=== PATIENT | female | born 1990 | race Caucasian/White ===

== ENCOUNTER → 2023-02-20 | Outpatient (CLI) | payer BC ==
[2023-02-20 17:36] LABS: BASOPHILS ABSOLUTE AUTO 0.02 K/mm3 (0.00-0.23); BASOPHILS PERCENT AUTO 0 % (0-2); EOSINOPHILS ABSOLUTE AUTO 0.07 K/mm3 (0.00-0.68); EOSINOPHILS PERCENT AUTO 1 % (0-6); Hematocrit 43.1 % (33.0-51.0); IMMATURE GRAN ABSOLUTE AUTO 0.01 K/mm3 (0.00-0.10); IMMATURE GRAN PERCENT AUTO 0 % (0-1); LYMPHOCYTES ABSOLUTE AUTO 1.98 K/mm3 (0.84-5.20); LYMPHOCYTES PERCENT AUTO 33 % (21-46); MONOCYTES ABSOLUTE AUTO 0.41 K/mm3 (0.16-1.47); MONOCYTES PERCENT AUTO 7 % (4-13); Mean Corpuscular HGB 27.7 pg (26.0-34.0); Mean Corpuscular HGB Conc 32.5 g/dL (31.5-36.5); Mean Corpuscular Volume 85 fL (80-100); Mean Platelet Volume 9.6 fL (9.1-12.4); NEUTROPHILS ABSOLUTE AUTO 3.57 K/mm3 (1.96-9.15); NEUTROPHILS PERCENT AUTO 59 % (41-73); Platelet Count 230 K/mm3 (150-400); RDW Coefficient Variation 14.2 % (11.7-14.2); RDW Standard Deviation 43.8 fL (35.1-46.3); Red Blood Cell Count 5.05 M/mm3 (3.80-5.20); White Blood Cell Count 6.06 K/mm3 (4.00-11.30)
[2023-02-20 17:58] LABS: Albumin, Blood 3.9 g/dL (3.4-5.0); Albumin/Globulin Ratio 1.1 (0.8-1.8); Bilirubin, Total 0.4 mg/dL (0.1-1.0); Bun/Creatinine Ratio 11.5 (12.0-20.0); Creatinine, Blood 0.79 mg/dL (0.40-1.00); Globulin, Blood 3.6 g/dL (2.2-4.0); Potassium, Blood 4.1 mmol/L (3.5-5.5); Thyroid Stimulating Hormone 1.87 uIU/mL (0.360-4.800); Total Protein, Blood 7.5 g/dL (6.4-8.2)
== END | disposition home or self-care (01) ==
LOC: LAB 15:58 → LAB SHORT 15:58
PROVIDERS: Physician Assistant
DX: R07.9 Chest pain, unspecified (principal)
CPT/HCPCS: 80053; 84443; 85025

== ENCOUNTER 2024-05-15 07:18 | Day surgery (SDC) | payer BC ==
[~2024-05-15] VITALS: Ht 162.6 cm; Wt 108.3 kg
[2024-05-15] MEDS ORDERED: CeFAZolin Sodium 2,000 MG VIAL ONE (07:29)
[2024-05-15] MEDS ORDERED: NS 50 ML IV ONE (07:30)
[2024-05-15] MEDS ORDERED: METF500 PO (07:57)
[2024-05-15] MEDS ORDERED: VYVANSE10 MG PO (07:58)
[2024-05-15] MEDS ORDERED: DESV50 PO (07:58)
[2024-05-15] MEDS ORDERED: Midazolam HCl 1MG / ML 2ML Vial ONE (08:00)
[2024-05-15] MEDS ORDERED: FentaNYL Citrate 50 MCG/ML 2 ML Injection ONE (08:00)
[2024-05-15] MEDS ORDERED: Lactated Ringer's 1,000 ML IV ONE ×2 (08:07→09:09)
--- NOTE | 2024-05-15 08:16 | NUR ---
05/15/24 0816 Demi lA 0.15ML OF EPI (1MG/ML) ADDED TO BUPIVACAINE 0.5% (150MG/30ML) TO MAKE BUPIVACAINE 0.5% WITH EPI 1:200,000 ON FIELD.
[2024-05-15] MEDS ORDERED: Dexamethasone Sod Phos 10 MG/ML 1ML VIAL ONE (08:18)
[2024-05-15] MEDS ORDERED: Bupivacaine 0.5% HCl 5 MG/ML 30MLVIAL INJ ONE ×2 (08:26)
[2024-05-15] MEDS ORDERED: EPINEPhrine HCl 1 MG/ML 1ML Amp XX ONE ×2 (08:27)
[2024-05-15] MEDS ORDERED: propofoL 60 ML IV ONE (08:47)
--- NOTE | 2024-05-15 08:48 | NUR ---
05/15/24 0848 Josy LeónED AND FENTANYL PULLED BY DR ALEX. OREDERED TO GIVE 1 CC OF FENTANYL AND 1 CC OF VERSED. 1 ML OF EACH GIVEN IN IV. NEITHER MEDICATION SHOWING UP IN EMAR. DR ALEX TOOK REMAINING 1 ML OF FENTANYL AND 1 ML VERSED BACK TO THE O.R.
[2024-05-15 10:44] VITALS: BP 122/84
== END 2024-05-15 10:42 | disposition home or self-care (01) ==
LOC: ORSCSDS 07:18
PROVIDERS: Podiatrist Foot & Ankle Surgery
PROC: 0QSJ04Z Reposition Right Fibula with Internal Fixation Device, Open Approach (ICD-10-PCS; principal; 2024-05-15 08:30)
DX: S82.61XA Displaced fracture of lateral malleolus of right fibula, initial encounter for closed fracture (principal); Y93.59 Activity, other involving other sports and athletics played individually; E11.9 Type 2 diabetes mellitus without complications; Z79.84 Long term (current) use of oral hypoglycemic drugs; Z79.899 Other long term (current) drug therapy; F90.9 Attention-deficit hyperactivity disorder, unspecified type; F41.9 Anxiety disorder, unspecified; F32.A Depression, unspecified; Z87.891 Personal history of nicotine dependence; E66.9 Obesity, unspecified; Z68.41 Body mass index [BMI] 40.0-44.9, adult
CPT/HCPCS: 82947; C1713; C1889; J0171; J0690; J1100; J2250; J2704; J3010